=== PATIENT | male | born 1970 | race Two or more races ===

== ENCOUNTER → 2018-01-12 | Emergency (ER) | payer OTHER ==
[~2018-01-12] VITALS: Ht 177.8 cm; Wt 78.0 kg
[~2018-01-12] MED LIST: ATENOLOL25 GM; BENADRYL25 MG; INDERAL LA160 MG; LITHATE5 MG; LORCET 10/650 T1 TAB; PERCOCET 5/3251 TAB PO; RESTORIL7.5 MG; ZANAFLEX2 M1
== END | disposition home or self-care (01) ==
LOC: ER 15:25
DX: R10.84 Generalized abdominal pain (principal); R10.2 Pelvic and perineal pain

== ENCOUNTER 2020-05-13 11:51 | Outpatient (CLI) | payer OTHER | END 2020-05-13 11:54 | disposition home or self-care (01) | LOC: NUCLEAR 11:51 | PROVIDERS: ATTEND Orthopaedic Surgery Orthopaedic Surgery of the Spine | DX: M81.8 Other osteoporosis without current pathological fracture (principal) ==

== ENCOUNTER 2020-05-15 12:15 | Outpatient (CLI) | payer OTHER | END 2020-05-15 12:24 | disposition home or self-care (01) | LOC: RAD 12:15 | PROVIDERS: ATTEND Orthopaedic Surgery Orthopaedic Surgery of the Spine | DX: M50.30 Other cervical disc degeneration, unspecified cervical region (principal) ==